=== PATIENT | male | born 1945 | race Caucasian/White ===

== ENCOUNTER 2017-03-09 15:36 | Emergency (ER) | payer MEDICARE ==
[2017-03-09 16:23] LABS: BASOPHILS 0.1 % (0-2); EOSINOPHILS 0 % (0-7); HEMATOCRIT 39.7 % (42.0-54.0); HEMOGLOBIN 13.1 g/dL (13.5-17.5); IMMATURE GRANULOCYTES 0.2 % (0-5); LYMPHOCYTES 16.7 % (15-50); MCH 31.3 pg (26.0-34.0); MCV 94.7 fL (80.0-100.0); MEAN PLATELET VOLUME 10.5 fL (7.4-10.4); MONOCYTES 8.2 % (2-11); NEUTROPHILS 74.8 % (40-80); PLATELET COUNT 271 10x3/uL (130-400); RBC 4.19 10x6/uL (4.20-6.10); RDW 14.5 % (11.5-14.5)
[2017-03-09 16:47] LABS: ALBUMIN 3.1 g/dL (3.4-5.0); ALKALINE PHOSPHATASE 115 U/L (46-116); ALT (SGPT) 28 U/L (10-68); BILIRUBIN - TOTAL 0.42 mg/dL (0.2-1.3); CALC OSMOLALITY 284 mosm/kg (275-300); CHLORIDE - SERUM 105 mmol/L (98-107); CREATININE - SERUM 0.8 mg/dL (0.6-1.3); GLUCOSE 166 mg/dL (74-106); POTASSIUM - SERUM 4.7 mmol/L (3.5-5.1); PROTEIN - SERUM 7.1 g/dL (6.4-8.2); SODIUM 139 mmol/L (136-145); UREA NITROGEN 22 mg/dL (7-18); eGFR NON AFRICAN AMERICAN > 90 mL/min (90-120)
[2017-03-09 16:53] LABS: CREATINE KINASE 84 UL (21-232); PRO BNP 305 pg/mL (0-125); TROPONIN-I < 0.017 ng/mL (0.000-0.060)
[2017-03-09 17:40] LABS: APPEARANCE CLEAR (CLEAR); BILIRUBIN NEGATIVE (NEGATIVE); COLOR YELLOW (YELLOW); GLUCOSE NEGATIVE (NEGATIVE); KETONE NEGATIVE (NEGATIVE); LEUKOCYTE ESTERASE NEGATIVE (NEGATIVE); NITRITE NEGATIVE (NEGATIVE); PROTEIN NEGATIVE (NEGATIVE); UROBILINOGEN NORMAL (NORMAL)
== END 2017-03-09 18:53 | disposition home or self-care (01) ==
LOC: D.ER 15:36
PROVIDERS: Emergency Medicine; Nurse Practitioner Acute Care
DX: R53.1 Weakness (principal); I20.9 Angina pectoris, unspecified; I10 Essential (primary) hypertension; R07.9 Chest pain, unspecified

== ENCOUNTER 2017-04-28 16:37 | Observation (INO) | payer MEDICARE, OTHER ==
[~2017-04-28] VITALS: Ht 175.3 cm; Wt 108.0 kg
[2017-04-28 17:42] LABS: APPEARANCE CLEAR (CLEAR); BILIRUBIN NEGATIVE (NEGATIVE); COLOR YELLOW (YELLOW); GLUCOSE 1000 mg/dL (NEGATIVE); KETONE NEGATIVE (NEGATIVE); LEUKOCYTE ESTERASE NEGATIVE (NEGATIVE); NITRITE NEGATIVE (NEGATIVE); PROTEIN NEGATIVE (NEGATIVE); SPECIFIC GRAVITY 1.015 (1.005-1.020); UROBILINOGEN NORMAL (NORMAL)
[2017-04-28 18:06] LABS: BASOPHILS 0.1 % (0-2); EOSINOPHILS 0.2 % (0-7); HEMATOCRIT 39.5 % (42.0-54.0); HEMOGLOBIN 13.1 g/dL (13.5-17.5); IMMATURE GRANULOCYTES 0.2 % (0-5); LYMPHOCYTES 16.3 % (15-50); MCH 32.1 pg (26.0-34.0); MCHC 33.2 g/dL (31.0-37.0); MCV 96.8 fL (80.0-100.0); MEAN PLATELET VOLUME 10.3 fL (7.4-10.4); MONOCYTES 8.6 % (2-11); NEUTROPHILS 74.6 % (40-80); RBC 4.08 10x6/uL (4.20-6.10); RDW 15.4 % (11.5-14.5); WBC 8.7 10x3/uL (4.8-10.8)
[2017-04-28 18:09] LABS: PLATELET COUNT 189 10x3/uL (130-400)
[2017-04-28 18:56] LABS: ALBUMIN 2.7 g/dL (3.4-5.0); ALKALINE PHOSPHATASE 118 U/L (46-116); ALT (SGPT) 37 U/L (10-68); BILIRUBIN - TOTAL 0.34 mg/dL (0.2-1.3); CALC OSMOLALITY 286 mosm/kg (275-300); CALCIUM 8.3 mg/dL (8.5-10.1); CARBON DIOXIDE 29.1 mmol/L (21.0-32.0); CHLORIDE - SERUM 100 mmol/L (98-107); POTASSIUM - SERUM 4.5 mmol/L (3.5-5.1); PROTEIN - SERUM 6.3 g/dL (6.4-8.2); SODIUM 138 mmol/L (136-145); UREA NITROGEN 18 mg/dL (7-18); eGFR NON AFRICAN AMERICAN 78 mL/min (90-120)
[2017-04-28 19:00] LABS: GLUCOSE 258 mg/dL (74-106)
--- NOTE | 2017-04-28 20:42 | NUR ---
REC'D TO ROOM 2214 FROM [facility] VIA A 71 Y/O W/M PER SERVICES DR. BERNSTEIN WITH DX. SYNCOPE/CELLULITIS LEFT ELBOW. SALINE LOCK PATENT RT AC. SITE CLEAR. ALLERGY=LEVAQUIN/KEFLEX. ASSESSMENT PER ADMIT PACTET. LEFT ELBOW RED SWOLLEN FROM UPPER ARM DOWN TO HAND. SCABS NOTED WITH ABRASIONS. PLACED ON TELM. SHOWS SR 74.
--- NOTE | 2017-04-28 22:00 | NUR ---
PLACED ON TELM. SHOWS SR WITH HR 74.
--- NOTE | 2017-04-28 22:43 | NUR ---
C/O PAIN IN LEGS CRAMPING TYPE PAIN. TYLENOL 650MG GIVEN FOR PAIN CONTROL.
[2017-04-28] MEDS ORDERED: ZYTIGA250 MG PO (22:52)
[2017-04-28] MEDS ORDERED: PREDNISONE5 MG PO (22:53)
[2017-04-28] MEDS ORDERED: COZAAR25 MG PO (22:54)
[2017-04-28] MEDS ORDERED: LOPRESSOR25 MG PO (22:55)
[2017-04-28] MEDS ORDERED: OMEPRAZOLE20 M1 PO (22:57)
[2017-04-28] MEDS ORDERED: TRIAMTERENE-HCT1 TA1 PO (22:58)
[2017-04-28] MEDS ORDERED: HYDROCODONE-APA1 TAB PO (23:00)
[2017-04-28] MEDS ORDERED: LIPITOR20 MG PO (23:00)
--- NOTE | 2017-04-28 23:00 | NUR ---
HERE DISCUSSED PT'S HOME MEDS. IV FLUIDS OF NS STARTED TO IV SITE RT AC AT 100CC'S/HR.
[2017-04-28] MEDS ORDERED: LOMOTIL TABLET1 TAB PO (23:02)
[2017-04-28] MEDS ORDERED: SPIRIVA18 MCG INH (23:02)
[2017-04-28] MEDS ORDERED: LUNESTA2 M1 PO (23:04)
[2017-04-28] MEDS ORDERED: FLUTICASONE PRO16 GM (23:04)
[2017-04-28] MEDS ORDERED: ZANAFLEX2 M1 PO (23:05)
[2017-04-28] MEDS ORDERED: ASPIRIN81 MG PO (23:08)
[2017-04-28] MEDS ORDERED: MELATONIN 3 MG1 TAB PO (23:09)
[2017-04-28] MEDS ORDERED: MAG-OX 400 MG400 MG PO (23:10)
[2017-04-28] MEDS ORDERED: FISH OIL 1,2001 CAP PO (23:11)
[2017-04-28] MEDS ORDERED: CAYENNE (23:16)
[2017-04-28] MEDS ORDERED: MULTIPLE VITAMI1 TA1 PO (23:16)
[2017-04-28] MEDS ORDERED: CO Q-10200 MG (23:17)
[2017-04-28] MEDS ORDERED: CALCIUM 500 + D1 TAB PO (23:19)
[2017-04-28] MEDS ORDERED: CINNAMON500 MG PO (23:19)
[2017-04-28] MEDS ORDERED: LUTEIN20 MG PO (23:20)
[2017-04-28] MEDS ORDERED: ZEAXANTHIN PO (23:23)
[2017-04-28] MEDS ORDERED: CLOTRIM ANTIFUN15 GM TOPICAL (23:24)
[2017-04-28] MEDS ORDERED: TEMAZEPAM30 MG PO (23:33)
[2017-04-29] VITALS: BP 144/93
--- NOTE | 2017-04-29 | NUR ---
IV BEEPING RESITED TO LEFT HAND #20G ANGICATH RESUMED IV FLUIDS.
--- NOTE | 2017-04-29 01:11 | NUR ---
PATIENT VERY AGITATED STATES LEGS ARE CRAMPING AND WANTS TO GET OUT OF BED ASSISTED UP OUT OF BED AND WALKED IN HALLWAY A SHORT DISTANCE. THEN BACK TO BED PT YELLING THAT LEGS ARE CRAMPING NOTIFIED ER MD DR. CLINTON ORDERS REC'D FOR NORCO GIVEN FOR PAIN CONTROL.
--- NOTE | 2017-04-29 01:30 | NUR ---
IV BEEPS BECAUSE PT IS MOVING ABOUT IN BED. REQUESTING IV BE TURNED OFF FOR NOW
[2017-04-29 01:45] VITALS: BP 116/76; BMI 35.2
--- NOTE | 2017-04-29 02:00 | NUR ---
EYES CLOSED RESPIRATIONS WITH EASE AND UNLABORED.
--- NOTE | 2017-04-29 04:00 | NUR ---
RESTING QUIETLY DENIES NEEDS.
--- NOTE | 2017-04-29 06:00 | NUR ---
MEDS GIVEN PER NOV. AWAKE ALERT FEELING MUCH BETTER.
--- NOTE | 2017-04-29 07:25 | NUR ---
ASSESSMENT PER FLOW SHEET.PT WITHOUT DISTRESS.HAS BEEN UP IN ROOM THIS AM. LEFT ARM/ ELBOW HAS SOME REDNESS WITH MILD SWELLING.SCABS ALSO NOTED TO RIGHT ELBOW AREA.CALL LIGHT IN REACH.
[2017-04-29 07:55] VITALS: BP 138/72
[2017-04-29 10:41] VITALS: Ht 175.3 cm; Wt 108.0 kg
--- NOTE | 2017-04-29 10:57 | NUR ---
ATE CLEAR LIQUID TRAY FOR BREAKFAST AND TOLERATED WELL.HAS BEEN UP AGAIN TO AMBULATE IN HALLS.DRINKING COFFEE.ANXIOUS RE... HOME MEDS.CALL TO .
[2017-04-29] MEDS ORDERED: CLEOCIN HCL150 MG PO (11:19)
--- NOTE | 2017-04-29 11:28 | NUR ---
ORDERED CLINDAMYCIN CALLED TO [facility] ON [address]. DELFINA, PHARMACIST RECEIVED ORDER.
--- NOTE | 2017-04-29 11:48 | NUR ---
IV DCD WITH CATH INTACT X2.DISCHARGE INSTRUCTIONS,STATES UNDERSTANDING. ASSIST WITH DRESSING.
[2017-04-29 12:00] VITALS: BP 144/82
--- NOTE | 2017-04-29 12:07 | NUR ---
LEFT UNNIT VIA WHEELCHAIR
--- NOTE | 2017-04-29 16:24 | HP ---
PATIENT: JORY DAVENPORT MEDICAL RECORD: [id number] ACCOUNT: [id number] LOCATION:D.MS [id number] : 43 ADMISSION DATE: 04/28/17 HISTORY AND PHYSICAL EXAMINATION Admission History and Physical HISTORY OF PRESENT ILLNESS: A 71-year-old male presented to the Emergency Room with a near syncopal episode, reports a fall at home. The patient has stage IV prostate cancer. His oncologist, heating and ventilating worker and primary care physician are in [place]. He is undergoing chemotherapy for maintained remission, stabilization. He is also followed closely by his heating and ventilating worker. He had been in [facility] for the past several days with his and had gotten dehydrated, usually drinks Pedialyte or Gatorade and had not had any significant fluids, continued his cardiac medications, became hypotensive and fell, did not lose consciousness. CURRENT MEDICATIONS: Listed as Zytigia 1 four times daily in the morning, prednisone 5 mg 1 in a.m. and 1 in p.m., losartan 25 mg daily, metoprolol 25 mg one half pill in the a.m., omeprazole 20 mg daily, triamterene half tab daily in the a.m., hydrochlorothiazide half tab daily in the a.m., hydrocodone 10/325 one to two q.4 hours p.r.n., Lipitor 20 mg once at night, Lomotil 2.5 mg two every 6-8 hours p.r.n. diarrhea, Spiriva 18 mcg daily, fluticasone 50 mcg, Lunesta 2 mg q.h.s., tizanidine 2 mg b.i.d., aspirin 81 mg daily, melatonin 3 mg at night, magnesium 400 mg 2 daily, fish oil 1200 mg q.h.s., Cayenne 400 units b.i.d., multivitamin daily, CoQ10 200 mg daily, calcium with D daily, cinnamon 1000 mg daily, lutein 25 mg daily, CPAP with sleep, terbinafine 250 mg once a day, Bactroban for recent cellulitis wrist. FAMILY HISTORY: Noncontributory. The patient is a limited historian with his chemo regimen. REVIEW OF SYSTEMS: GENERAL: No acute change in weight. HEENT: No cephalgia, visual changes, tinnitus, epistaxis or dysphagia. CARDIOVASCULAR: History of arrhythmia, believed to be paroxysmal AFib. The patient is unclear. He does see a heating and ventilating worker on a regular basis. Denies chest pain, denies palpitations. PULMONARY: Denies hemoptysis, denies night sweats. GASTROINTESTINAL: Denies hematemesis, hematochezia or melena. GENITOURINARY: Denies dysuria, denies change in frequency. History significant for stage IV prostate cancer. MUSCULOSKELETAL: No acute changes. ENDOCRINE: Denies polyuria, polydipsia, or polyphagia. PHYSICAL EXAMINATION: VITAL SIGNS: Temperature 99.1, heart rate 120, respirations 20, blood pressures improved to 116/76, O2 sats 97% on room air. GENERAL: Alert, oriented to person, answers appropriately. No acute distress. HEENT: No cephalgia, visual changes, tinnitus, epistaxis or dysphagia. CARDIOVASCULAR: Denies chest pain. History as above. PULMONARY: Denies hemoptysis, denies night sweats. GASTROINTESTINAL: Denies hematemesis, hematochezia or melena. GENITOURINARY: Denies dysuria. History of stage IV prostate cancer, on chemo. MUSCULOSKELETAL: No acute changes. HISTORY AND PHYSICAL [id number] JORY DAVENPORT ENDOCRINE: Denies polyuria, polydipsia, or polyphagia. PHYSICAL EXAMINATION: VITAL SIGNS: Temperature 99.1, heart rate 120, respirations 20, blood pressure 116/76, O2 sats 97%. GENERAL: Alert and oriented. HEENT: Normocephalic, atraumatic. Eyes: Pupils are equally round and reactive to light and accommodation. Extraocular muscles intact. Conjunctivae were not injected. Ears: Canals patent, TMs are intact. Nose: Nares patent without drainage. Throat: No erythema, no exudates. NECK: Supple. No lymphadenopathy, no JVD. HEART: Regular, tachycardic. LUNGS: Clear to auscultation bilaterally. Breathing is nonlabored. ABDOMEN: Soft, nontender. Bowel sounds all 4 quadrants. EXTREMITIES: Present times 4. No significant edema. NEUROLOGIC: No focal deficits. SKIN: Warm and dry, excoriated rash left forearm. Has appearance of chronic eczema with may be possible secondary inflammation versus infection. No weeping, no drainage, no swelling. LABORATORY DATA: CBC: White count 8.7, hemoglobin 13.1, hematocrit 39.5, platelets 189. Chemistry shows a sodium of 138, potassium 4.5, chloride 100, bicarbonate 29.1, BUN 18, creatinine 1.0, glucose 258. AST 24, ALT 37, alkaline phosphatase 118. Urinalysis: Yellow, clear, normal UA except for glucose is 1000. Acute abdominal series, nonobstructive bowel gas pattern. Lungs are clear, borderline cardiomegaly, moderate stool. ASSESSMENT AND PLAN: 1. Reported near syncopal episode with fall. No evidence of trauma, hypotension. Telemetry shows AFib, ranging from 72-106. This is likely chronic, with his history and per discussion. We will resume home medications. 2. Stage IV prostate cancer. Continue medications. 3. Elevated glucose and diabetic diet, monitor. Discussed care plan with the patient. He does not want cardiac intervention here. He is already established with the heating and ventilating worker and oncologist and primary care in [place]. He is feeling much better with IV fluids. We will monitor this morning and this afternoon with discharge plans anticipated for late this afternoon or tomorrow. The patient appreciates and agrees with this plan. We will see how he does with conversion to oral hydration. TRANSINT:[id number] Voice Confirmation ID: [id number] DOCUMENT ID: [id number] BERNARD BERNSTEIN DO at 1624 CC: [id number] DICTATION DATE: 04/29/17756 [facility] ALTERATION: 04/29/17 0857 DIS IN 04/29/17 [facility] [address] [id number]
== END 2017-04-29 12:08 | disposition home or self-care (01) ==
LOC: D.ER 16:37 → D.MS 19:42 → OBSVTIME 19:42 → D.MS 04-29 12:08
PROVIDERS: Emergency Medicine; ADMIT Family Medicine
DX: I95.9 Hypotension, unspecified (principal); R55 Syncope and collapse; W19.XXXA Unspecified fall, initial encounter; I48.91 Unspecified atrial fibrillation; L03.114 Cellulitis of left upper limb; C61 Malignant neoplasm of prostate

== ENCOUNTER 2019-01-09 05:22 | Emergency (ER) | payer MEDICARE, OTHER ==
[~2019-01-09 05:22] MED LIST: ASPIRIN81 MG PO; CALCIUM 500 + D1 TAB PO; CAYENNE; CINNAMON500 MG PO; CLEOCIN HCL150 MG PO; CLOTRIM ANTIFUN15 GM TOPICAL; CO Q-10200 MG; COZAAR25 MG PO; FISH OIL 1,2001 CAP PO; FLUTICASONE PRO16 GM; HYDROCODONE-APA1 TAB PO; LIPITOR20 MG PO; LOMOTIL TABLET1 TAB PO; LOPRESSOR25 MG PO; LUNESTA2 M1 PO; LUTEIN20 MG PO; MAG-OX 400 MG400 MG PO; MELATONIN 3 MG1 TAB PO; MULTIPLE VITAMI1 TA1 PO; OMEPRAZOLE20 M1 PO; PREDNISONE5 MG PO; SPIRIVA18 MCG INH; TEMAZEPAM30 MG PO; TRIAMTERENE-HCT1 TA1 PO; ZANAFLEX2 M1 PO; ZEAXANTHIN PO; ZYTIGA250 MG PO
[2019-01-09 05:51] LABS: BASOPHILS 0.4 % (0-2); EOSINOPHILS 2.2 % (0-7); HEMATOCRIT 37.3 % (42.0-54.0); HEMOGLOBIN 12.2 g/dL (13.5-17.5); IMMATURE GRANULOCYTES 0.3 % (0-5); LYMPHOCYTES 27.7 % (15-50); MCH 31.1 pg (26.0-34.0); MCHC 32.7 g/dL (31.0-37.0); MCV 95.2 fL (80.0-100.0); MEAN PLATELET VOLUME 10.3 fL (7.4-10.4); MONOCYTES 9.8 % (2-11); NEUTROPHILS 59.6 % (40-80); PLATELET COUNT 217 10x3/uL (130-400); RBC 3.92 10x6/uL (4.20-6.10); RDW 14.8 % (11.5-14.5); WBC 7.8 10x3/uL (4.8-10.8)
[2019-01-09 06:02] LABS: ALBUMIN 2.9 g/dL (3.4-5.0); ALKALINE PHOSPHATASE 73 U/L (46-116); ALT (SGPT) 22 U/L (10-68); BILIRUBIN - TOTAL 0.32 mg/dL (0.2-1.3); CALC OSMOLALITY 285 mosm/kg (275-300); CALCIUM 8.4 mg/dL (8.5-10.1); CARBON DIOXIDE 28.6 mmol/L (21.0-32.0); CHLORIDE - SERUM 106 mmol/L (98-107); CREATININE - SERUM 0.9 mg/dL (0.6-1.3); POTASSIUM - SERUM 3.7 mmol/L (3.5-5.1); PROTEIN - SERUM 6.5 g/dL (6.4-8.2); SODIUM 141 mmol/L (136-145); UREA NITROGEN 20 mg/dL (7-18); eGFR NON AFRICAN AMERICAN 87 mL/min (90-120)
[2019-01-09 06:04] LABS: GLUCOSE 136 mg/dL (74-106)
[2019-01-09 06:13] LABS: CKMB 1.1 U/L (0.0-3.6); CREATINE KINASE 91 UL (21-232)
[2019-01-09 06:14] LABS: TROPONIN-I < 0.017 ng/mL (0.000-0.060)
[2019-01-09 07:37] LABS: APTT 26.4 SECONDS (22.8-39.4); INR 1.07 (0.85-1.17); PROTIME 13.4 SECONDS (11.6-15.0)
[2019-01-09 08:41] LABS: CREATINE KINASE 80 UL (21-232)
[2019-01-09 08:42] LABS: TROPONIN-I < 0.017 ng/mL (0.000-0.060)
== END 2019-01-09 09:53 | disposition home or self-care (01) ==
LOC: D.ER 05:22
PROVIDERS: Emergency Medicine; Family Medicine
DX: R07.9 Chest pain, unspecified (principal); K21.9 Gastro-esophageal reflux disease without esophagitis

== ENCOUNTER 2019-01-25 13:35 | Emergency (ER) | payer MEDICARE, OTHER ==
[~2019-01-25] VITALS: Ht 175.3 cm; Wt 113.6 kg
[2019-01-25 13:38] VITALS: Ht 175.3 cm; Wt 113.6 kg
[2019-01-25 14:09] LABS: BASOPHILS 0.5 % (0-2); EOSINOPHILS 1.7 % (0-7); HEMATOCRIT 40.9 % (42.0-54.0); HEMOGLOBIN 13.6 g/dL (13.5-17.5); IMMATURE GRANULOCYTES 0.2 % (0-5); MCH 31.9 pg (26.0-34.0); MCHC 33.3 g/dL (31.0-37.0); MCV 95.8 fL (80.0-100.0); MEAN PLATELET VOLUME 10.7 fL (7.4-10.4); MONOCYTES 10.3 % (2-11); NEUTROPHILS 61.3 % (40-80); PLATELET COUNT 213 10x3/uL (130-400); RBC 4.27 10x6/uL (4.20-6.10); RDW 14.4 % (11.5-14.5); WBC 8.1 10x3/uL (4.8-10.8)
[2019-01-25 14:31] LABS: ALBUMIN 3.4 g/dL (3.4-5.0); ALKALINE PHOSPHATASE 79 U/L (46-116); ALT (SGPT) 22 U/L (10-68); BILIRUBIN - TOTAL 0.58 mg/dL (0.2-1.3); CALC OSMOLALITY 279 mosm/kg (275-300); CALCIUM 9.3 mg/dL (8.5-10.1); CARBON DIOXIDE 26.2 mmol/L (21.0-32.0); CHLORIDE - SERUM 102 mmol/L (98-107); CREATININE - SERUM 0.9 mg/dL (0.6-1.3); GLUCOSE 103 mg/dL (74-106); PROTEIN - SERUM 7.3 g/dL (6.4-8.2); SODIUM 139 mmol/L (136-145); UREA NITROGEN 17 mg/dL (7-18); eGFR NON AFRICAN AMERICAN 87 mL/min (90-120)
[2019-01-25 14:33] LABS: APTT 24.3 SECONDS (22.8-39.4); INR 1.05 (0.85-1.17); PROTIME 13.2 SECONDS (11.6-15.0)
[2019-01-25 14:36] LABS: CKMB 1.2 U/L (0.0-3.6); CREATINE KINASE 90 UL (21-232)
[2019-01-25 14:40] LABS: TROPONIN-I < 0.017 ng/mL (0.000-0.060)
[2019-01-25 16:51] LABS: APPEARANCE CLEAR (CLEAR); BILIRUBIN NEGATIVE (NEGATIVE); COLOR YELLOW (YELLOW); GLUCOSE NEGATIVE (NEGATIVE); KETONE NEGATIVE (NEGATIVE); NITRITE POSITIVE (NEGATIVE); PROTEIN NEGATIVE (NEGATIVE); SPECIFIC GRAVITY 1.015 (1.005-1.020); UROBILINOGEN NORMAL (NORMAL)
[2019-01-25 16:52] LABS: BACTERIA MANY /hpf (NONE SEEN); RED CELLS - URINE OCC /hpf (0-5); WHITE CELLS - URINE 0-5 /hpf (0-5)
[2019-01-25] MEDS ORDERED: MACROBID100 MG PO ×2 (17:16→17:23)
[2019-01-25 17:30] VITALS: BP 134/86
== END 2019-01-25 18:03 | disposition home or self-care (01) ==
LOC: D.ER 13:35
PROVIDERS: Family Medicine
DX: N39.0 Urinary tract infection, site not specified (principal); R53.1 Weakness

== ENCOUNTER 2019-07-22 02:24 | Outpatient (CLI) | payer MEDICARE, OTHER ==
[~2019-07-22] VITALS: Ht 175.3 cm; Wt 113.6 kg
[~2019-07-22 02:24] MED LIST changes: +MACROBID100 MG PO
[2019-07-22 02:47] LABS: BASOPHILS 0.1 % (0-2); EOSINOPHILS 3.3 % (0-7); HEMATOCRIT 38.7 % (42.0-54.0); HEMOGLOBIN 12.4 g/dL (13.5-17.5); LYMPHOCYTES 32.2 % (15-50); MCH 31.3 pg (26.0-34.0); MCV 97.7 fL (80.0-100.0); MEAN PLATELET VOLUME 10.3 fL (7.4-10.4); MONOCYTES 9.3 % (2-11); NEUTROPHILS 55.1 % (40-80); PLATELET COUNT 215 10x3/uL (130-400); RBC 3.96 10x6/uL (4.20-6.10); RDW 14.1 % (11.5-14.5); WBC 7.4 10x3/uL (4.8-10.8)
[2019-07-22 02:56] LABS: CALC OSMOLALITY 277 mosm/kg (275-300); CALCIUM 8.5 mg/dL (8.5-10.1); CHLORIDE - SERUM 104 mmol/L (98-107); CREATININE - SERUM 0.9 mg/dL (0.6-1.3); GLUCOSE 134 mg/dL (74-106); SODIUM 138 mmol/L (136-145); UREA NITROGEN 13 mg/dL (7-18); eGFR NON AFRICAN AMERICAN 87 mL/min (90-120)
--- NOTE | 2019-07-22 03:22 | NUR ---
PT GIVEN BLANKETS AND HEAD OF BED ADJUSTED TO LEVEL OF COMFORT, DENIES ANY FURTHER NEEDS AT THIS TIME. WILL CONTINUE TO MONITOR.
[2019-07-22 03:25] LABS: ALBUMIN 3.2 g/dL (3.4-5.0); ALKALINE PHOSPHATASE 80 U/L (46-116); ALT (SGPT) 20 U/L (10-68); BILIRUBIN - TOTAL 0.48 mg/dL (0.2-1.3); CKMB 0.5 U/L (0.0-3.6); CREATINE KINASE 92 UL (21-232); MAGNESIUM - SERUM 2.1 mg/dL (1.8-2.4); PROTEIN - SERUM 7.1 g/dL (6.4-8.2); TROPONIN-I < 0.017 ng/mL (0.000-0.060)
[2019-07-22 04:40] VITALS: BP 119/73
[2019-07-22] MEDS ORDERED: ZYTIGA250 MG PO (05:42)
[2019-07-22] MEDS ORDERED: REMERON15 MG PO (05:52)
[2019-07-22] MEDS ORDERED: GLUCOTROL ER2.5 MG PO (05:53)
[2019-07-22] MEDS ORDERED: MULTAQ400 MG PO (05:55)
[2019-07-22 05:56] VITALS: BP 124/66; BMI 37.0
--- NOTE | 2019-07-22 07:15 | NUR ---
RECEIVED PT IN BED EYES CLOSED RESP UNLABORED SKIN W/D NAD NOTED AT THIS TIME
[2019-07-22 09:05] VITALS: BP 123/82
[2019-07-22 10:30] VITALS: Ht 175.3 cm; Wt 113.6 kg
--- NOTE | 2019-07-22 12:52 | NUR ---
PT STATES HE WILL TAKE ON HOME MEDS WHEN HE GETS HOME DISCHARGE IS ORDERED
--- NOTE | 2019-07-22 15:15 | NUR ---
REVIEWED DISCHARGE INSTRUCTIONS WITH PT STATES UNDERSTANDING COPY GIVEN DCD SALINE LOCK TO RFA WITH IV CATHETER INTACT SITE FREE OF REDNESS OR EDEMA PT DISCHARGED IN STABLE CONDITION WITH ALL PERSONAL BELONGINGS LEFT UNIT VIA W/C
== END 2019-07-22 05:15 | disposition home or self-care (01) ==
LOC: OBSVTIME → D.ER 02:24 → D.OPS 02:24 → OBSVTIME 04:16 → D.M2 04:16 → D.ER 04:16 → D.M2 04:16 → D.OPS 05:15 → D.ER 05:18 → EDSTATUS 10:58 → D.M2 15:15
PROVIDERS: Emergency Medicine; ATTEND Internal Medicine Nephrology
DX: R20.2 Paresthesia of skin (principal); D64.9 Anemia, unspecified; I10 Essential (primary) hypertension; E78.5 Hyperlipidemia, unspecified; E11.9 Type 2 diabetes mellitus without complications; K21.9 Gastro-esophageal reflux disease without esophagitis; C61 Malignant neoplasm of prostate; R42 Dizziness and giddiness

== ENCOUNTER 2019-09-11 02:54 | Emergency (ER) | payer MEDICARE, OTHER ==
[~2019-09-11] VITALS: Ht 175.3 cm; Wt 113.6 kg
[~2019-09-11 02:54] MED LIST changes: +GLUCOTROL ER2.5 MG PO; +MULTAQ400 MG PO; +REMERON15 MG PO
[2019-09-11 02:59] VITALS: Ht 175.3 cm; Wt 113.6 kg
[2019-09-11] MEDS ORDERED: REMERON15 MG PO (03:03)
[2019-09-11] MEDS ORDERED: ELIGARD (03:05)
[2019-09-11 03:42] LABS: BASOPHILS 0.5 % (0-2); EOSINOPHILS 3.3 % (0-7); HEMATOCRIT 38.4 % (42.0-54.0); HEMOGLOBIN 12.3 g/dL (13.5-17.5); IMMATURE GRANULOCYTES 0.2 % (0-5); LYMPHOCYTES 25.9 % (15-50); MCH 30.9 pg (26.0-34.0); MCV 96.5 fL (80.0-100.0); MONOCYTES 10.6 % (2-11); NEUTROPHILS 59.5 % (40-80); PLATELET COUNT 235 10x3/uL (130-400); RBC 3.98 10x6/uL (4.20-6.10); WBC 8.9 10x3/uL (4.8-10.8)
[2019-09-11 03:49] LABS: CALC OSMOLALITY 276 mosm/kg (275-300); CALCIUM 8.6 mg/dL (8.5-10.1); CHLORIDE - SERUM 104 mmol/L (98-107); GLUCOSE 174 mg/dL (74-106); POTASSIUM - SERUM 3.5 mmol/L (3.5-5.1); SODIUM 136 mmol/L (136-145); UREA NITROGEN 14 mg/dL (7-18); eGFR NON AFRICAN AMERICAN 77 mL/min (90-120)
[2019-09-11 04:09] LABS: ALBUMIN 2.9 g/dL (3.4-5.0); ALKALINE PHOSPHATASE 74 U/L (46-116); ALT (SGPT) 18 U/L (10-68); BILIRUBIN - TOTAL 0.42 mg/dL (0.2-1.3); MAGNESIUM - SERUM 1.9 mg/dL (1.8-2.4); PROTEIN - SERUM 6.6 g/dL (6.4-8.2)
[2019-09-11 06:32] VITALS: BP 123/70
== END 2019-09-11 06:30 | disposition home or self-care (01) ==
LOC: D.ER 02:54
PROVIDERS: Emergency Medicine
DX: T40.601A Poisoning by unspecified narcotics, accidental (unintentional), initial encounter (principal); Y92.9 Unspecified place or not applicable; E11.9 Type 2 diabetes mellitus without complications; I10 Essential (primary) hypertension; E78.5 Hyperlipidemia, unspecified; Z79.84 Long term (current) use of oral hypoglycemic drugs

== ENCOUNTER 2019-10-11 14:16 | Observation (INO) | payer MEDICARE, OTHER ==
[~2019-10-11] VITALS: Ht 175.3 cm; Wt 114.4 kg
[~2019-10-11 14:16] MED LIST changes: -CO Q-10200 MG; +CO Q-10200 MG PO; +ELIGARD
[2019-10-11 14:45] LABS: BASOPHILS 0.2 % (0-2); EOSINOPHILS 0.9 % (0-7); HEMATOCRIT 37.5 % (42.0-54.0); HEMOGLOBIN 12.1 g/dL (13.5-17.5); IMMATURE GRANULOCYTES 0.3 % (0-5); LYMPHOCYTES 15.1 % (15-50); MCH 31.2 pg (26.0-34.0); MCHC 32.3 g/dL (31.0-37.0); MCV 96.6 fL (80.0-100.0); MEAN PLATELET VOLUME 10.1 fL (7.4-10.4); MONOCYTES 7.8 % (2-11); NEUTROPHILS 75.7 % (40-80); PLATELET COUNT 245 10x3/uL (130-400); RBC 3.88 10x6/uL (4.20-6.10); RDW 14.2 % (11.5-14.5); WBC 9.9 10x3/uL (4.8-10.8)
[2019-10-11 15:04] LABS: APTT 26.1 SECONDS (22.8-39.4); CALC OSMOLALITY 286 mosm/kg (275-300); CALCIUM 8.3 mg/dL (8.5-10.1); CARBON DIOXIDE 27.7 mmol/L (21.0-32.0); CHLORIDE - SERUM 106 mmol/L (98-107); CREATININE - SERUM 0.8 mg/dL (0.6-1.3); GLUCOSE 140 mg/dL (74-106); INR 0.98 (0.85-1.17); POTASSIUM - SERUM 3.8 mmol/L (3.5-5.1); PROTIME 12.9 SECONDS (11.6-15.0); SODIUM 142 mmol/L (136-145); UREA NITROGEN 19 mg/dL (7-18); eGFR NON AFRICAN AMERICAN > 90 mL/min (90-120)
[2019-10-11 15:19] LABS: ALBUMIN 2.9 g/dL (3.4-5.0); ALKALINE PHOSPHATASE 124 U/L (46-116); ALT (SGPT) 17 U/L (10-68); BILIRUBIN - TOTAL 0.39 mg/dL (0.2-1.3); CKMB 0.8 U/L (0.0-3.6); CREATINE KINASE 49 UL (21-232); MAGNESIUM - SERUM 1.9 mg/dL (1.8-2.4); PROTEIN - SERUM 6.6 g/dL (6.4-8.2); TROPONIN-I < 0.017 ng/mL (0.000-0.060)
--- NOTE | 2019-10-11 15:30 | NUR ---
TP REQUESTED TO SIT UP ON SIDE OF BED. AT BEDSIDE. NO DISTRESS NOTED.
--- NOTE | 2019-10-11 16:10 | NUR ---
URINE SAMPLE SENT TO LAB
--- NOTE | 2019-10-11 16:47 | NUR ---
REPORT GIVEN TO LEDY ESCALANTE ON MED II. ROOM IS DIRTY
[2019-10-11 17:52] LABS: CKMB 0.4 U/L (0.0-3.6); CREATINE KINASE 47 UL (21-232)
[2019-10-11 17:55] LABS: TROPONIN-I < 0.017 ng/mL (0.000-0.060)
[2019-10-11 18:03] VITALS: BP 146/63
--- NOTE | 2019-10-11 18:23 | NUR ---
TRANSFER FROM ER BY STRETCHER. OREINTED TO ROOM. CALL LIGHT IN REACH. WILL CONT. PLAN OF CARE.
--- NOTE | 2019-10-11 19:30 | NUR ---
PATIENT WANTED TO GO OVER PATIENTS MEDICATIONS AGAIN BECAUSE SHE WAS NOT IN THE ROOM WHEN HIS MEDICATIONS WERE BE DISCUSSED. MRS. DAVENPORT WAS ADAMANT THAT HER HUSBANDS MEDICATION HAD TO BE ORDERED EXACTLY SHE STATED THEM. I WENT OVER THE PATIENT MEDICATIONS AND THEY WERE ENTERED TO HER SATISFACTION. SPOKE WITH VANDA GOMEZ REGARDING MED REC AND PAIN MEDICATION. PATIENT TAKES NORCO 10/325 ONE TO TWO TABLETS PRN FOR PAIN. ORDERS GIVEN NORCO 10/325 Q 6HR FOR PAIN.
[2019-10-11] MEDS ORDERED: ZYTIGA250 MG PO (19:46)
[2019-10-11 20:27] VITALS: BP 138/72
[2019-10-11] MEDS ORDERED: HYDROCODON-ACE1 EA10 PO (20:49)
--- NOTE | 2019-10-11 21:00 | NUR ---
MRS DAVENPORT CAME TO DESK WANTING HER TO HAVE HIS NIGHT TIME MEDICATIONS. EXPLAINED TO MRS. DAVENPORT THAT VANDA GOMEZ WAS AWARE THAT THE MEDICATIONS NEEDED TO BE ORDERED. PATIENT INSISTED THAT I PAGE VANDA GOMEZ AGAIN. VANDA GOMEZ PAGED AGAIN REGARDING MED REC. ADVUSED BY VANDA GOMEZ THAT HE IS WORKING ON IT. MRS DAVENPORT STATED SHE WAS NOT LEAVING UNTIL HER WAS GIVEN HIS GLIPIZIDE.
--- NOTE | 2019-10-11 21:20 | NUR ---
MRS. DAVENPORT LEFT FOR HOME. AGAIN ASKED ABOUT PATIENT MEDICATIONS. ASSURED MRS. DAVENPORT THAT IF MEDICATIONS WERE NOT REORDERED SHORTLY THAT I WOULD REMIND THE POLE LIFT OPERATOR. MRS. DAVENPORT WAS SATISFIED.
--- NOTE | 2019-10-11 21:48 | NUR ---
MEDICATIONS REORDERED. WENT TO PATIENT ROOM TO ADMINISTER MEDICATIONS. PATIENT BECAME UPSET BECAUSE HIS GLIPIZIDE WAS NOT REORDERED. PATIENT CALLED HIS TOLD HER THE SITUATION. PATIENT HANDED ME HIS CELL PHONE. MRS. DAVENPORT WAS EXTRMEMLY UPSET. EXPLAINED TO HER THAT IT WAS NORMAL THAT IF A PATIENT CAME INTO THE HOSPITAL TAKING ORAL MEDICATIONS FOR DIABETES IT WAS NOT UNSUAL FOR PHYSICIANS TO ORDER INSULIN. WHICH WAS DONE IN THIS CASE. EXPLAINED THAT THIS WAS MOSTLY LIKELY DONE IN ANTICIPATION FOR ANY PROCEDURES THAT MAY REQUIRE CONTRAST. MRS. DAVENPORT STATED, " DR. LAZO AND VANDA GOMEZ WERE NOT FORTH RIGHT WITH HER AND HER ." SHE STATED, THAT UNLESS IT WAS PROVEN TO HER THAT UT WAS A LIFE OR SITUATION SHE WANTED NOT PROCEDURES TO BEEN DONE HER, BECAUSE HER IS FOLLOWED BY SPECIALIST IN [place] AT THE [facility]. WHILE I WAS STILL ON THE PHONE WITH PATIENT , PATIENT STATED "I REMEMBER I TAKE ANOTHER MEDICATION, PREDNISONE 5 MG. EXPAINED TO THE PATIENT THAT THAT MEDICATION WAS ON HIS MED REC BUT THAT IT WAS PLACED ON HOLD. PATIENT SLAMMED FIST ON TO BED. STATED THAT IF HE WAS GOING TO HE COULD DO IT AT HOME. MRS. DAVENPORT STILL ON CELL PHONE WAS UPSET STATING THAT THAT MEDICATION WAS PART OF HIS CHEMO TREATMENT AND THAT HIS MEDICATIONS NEEDED TO BE GIVEN SHE TOLD ME EARLIER IN THE SHIFT. I EXPLAINED TO BOTH THE PATIENT HIS THAT I CAN ONLY GIVE MEDICATIONS THEY ARE ORDERED. I HANDED THE CELL PHONE TO HER . EXPLAINED TO THE PATIENT THAT I WAS GOING TO BE PAGING VANDA GOMEZ. VANDA GOMEZ PAGED AND AGREED TO COME OVER AND SPEAK TO THE PATIENT.
--- NOTE | 2019-10-11 22:20 | NUR ---
PRIOR TO VANDA GOMEZ ARRIVING TO FLOOR. PATIENT CAME TO DESK AND AGREED TO TAKE THE MEDICATION THAT WAS ORDERED. MEDICATION GIVEN CHARTED ON THE EMAR. PATIENT ALSO AGREED TO TKE THE INSULIN. VANDA GOMEZ CAME TO FLOOR AND SPOKE WITH THE PATIENT. PATIENT SEEMS SATIFIED AT THIS TIME.
[2019-10-12 00:56] VITALS: BP 128/62
[2019-10-12 01:36] VITALS: BP 138/72; Ht 175.3 cm; Wt 114.4 kg
[2019-10-12 03:03] LABS: BASOPHILS 0.2 % (0-2); EOSINOPHILS 1.1 % (0-7); HEMATOCRIT 37.6 % (42.0-54.0); HEMOGLOBIN 12.1 g/dL (13.5-17.5); IMMATURE GRANULOCYTES 0.2 % (0-5); LYMPHOCYTES 19.2 % (15-50); MCH 31.2 pg (26.0-34.0); MCHC 32.2 g/dL (31.0-37.0); MCV 96.9 fL (80.0-100.0); MEAN PLATELET VOLUME 10.1 fL (7.4-10.4); MONOCYTES 7.9 % (2-11); NEUTROPHILS 71.4 % (40-80); PLATELET COUNT 274 10x3/uL (130-400); RBC 3.88 10x6/uL (4.20-6.10); RDW 14.2 % (11.5-14.5); WBC 10.1 10x3/uL (4.8-10.8)
[2019-10-12 03:19] LABS: ALBUMIN 2.9 g/dL (3.4-5.0); ALKALINE PHOSPHATASE 124 U/L (46-116); ALT (SGPT) 18 U/L (10-68); BILIRUBIN - TOTAL 0.45 mg/dL (0.2-1.3); CALCIUM 8.2 mg/dL (8.5-10.1); CARBON DIOXIDE 29.1 mmol/L (21.0-32.0); CHLORIDE - SERUM 107 mmol/L (98-107); CKMB 0.4 U/L (0.0-3.6); CREATINE KINASE 50 UL (21-232); CREATININE - SERUM 0.9 mg/dL (0.6-1.3); GLUCOSE 125 mg/dL (74-106); MAGNESIUM - SERUM 2.1 mg/dL (1.8-2.4); POTASSIUM - SERUM 4.2 mmol/L (3.5-5.1); PRO BNP 245 pg/mL (0-450); PROTEIN - SERUM 6.7 g/dL (6.4-8.2); SODIUM 144 mmol/L (136-145); eGFR NON AFRICAN AMERICAN 87 mL/min (90-120)
[2019-10-12 03:27] LABS: CALC OSMOLALITY 288 mosm/kg (275-300); TROPONIN-I < 0.017 ng/mL (0.000-0.060); UREA NITROGEN 14 mg/dL (7-18)
[2019-10-12 05:19] VITALS: BP 128/79
[2019-10-12 09:09] LABS: CKMB 0.6 U/L (0.0-3.6); CREATINE KINASE 63 UL (21-232)
[2019-10-12 09:13] LABS: TROPONIN-I < 0.017 ng/mL (0.000-0.060)
[2019-10-12 10:38] VITALS: BP 130/70
--- NOTE | 2019-10-12 15:21 | NUR ---
IV AND TELEMETRY DCD. DC PLANS GIVEN. UNDERSTANDING VOICED. ESCORTED TO CAR BY W/C.
--- NOTE | 2019-10-13 08:16 | MORECARE ---
CASE MANAGEMENT DISCHARGE SUMMARY PATIENT: JORY DAVENPORT UNIT: [id number] ADM DATE: 10/11/19 AGE: 74 : 43 SEX: M ROOM/BED: D.2119 AUTHOR: BRITTANY THOMAS PHYSICIAN: REFERRING PHYSICIAN: JAIME LAZO MD DATE OF SERVICE: 10/13/19 Discharge Plan Patient Name: JORY DAVENPORT [facility] [facility] 1945 Planned Disposition: Home Anticipated Discharge Date: 10/12/19 Discharge Date: 10/12/2019 Expected LOS: 1 Initial Reviewer: [email or web address] Initial Review Date: 10/13/2019 Generated: 10/13/19 9:16 am Coverage Notice Reviewer: [email or web address] Alma Jeter Notice Issued Date-Time: 10/12/2019 11:35 Notice Type: Medicare Outpatient Observation Notice Notice Delivered To: Patient Relationship to Patient: Sandstone Inspector Repairer Name: Delivery Method: HAND - Hand Delivered Karine Days: Prior Verbal Notification: Recipient Understood Notice: Yes Recipient Signature: Yes Med Rec Note Co-signed by Attending: Coverage Notice Comment: Patient Name: JORY DAVENPORT Page [phone] at 0816 All edits/amendments must be made on the electronic document DICTATION DATE: 10/13/19814 PIPELINE OPERATOR: MIRIAM 10/13/19814 RPT#: [id number] DC DATE:10/12/19 STATUS: DIS IN [facility] [address] [place] [address] END OF REPORT
--- NOTE | 2019-10-13 13:25 | CN ---
PATIENT NAME:JORY DAVENPORT MEDICAL RECORD: [id number] : 41 LOCATION:. D.2119 ADMIT DATE: 10/11/19 ACCOUNT: [id number] CONSULTING PHYSICIAN: JACQUELYN BLAKELY MD REFERRING PHYSICIAN: JAIME LAZO MD DATE OF CONSULTATION: 10/12/2019 HISTORY OF PRESENT ILLNESS: A 74-year-old gentleman with no known history of coronary artery disease, has a history of atrial fibrillation followed by Dr. Donaldson, scheduled actually for nuclear stress testing tomorrow and presented with chest pain. This is a somewhat atypical point tenderness. We were asked to see him concerning his cardiovascular status. PAST MEDICAL HISTORY: Significant for, 1. History of hypertension. 2. Hyperlipidemia. 3. Diabetes mellitus. 4. Atrial fibrillation described above. 5. Gastroesophageal reflux disease. MEDICATIONS: Typically include Zytiga gram p.o. daily, losartan 25 mg p.o. every day, metoprolol 12.5 mg p.o. at bedtime, atorvastatin 20 every day, Multaq 400 every day, Remeron 15 at bedtime, aspirin 81 every day, Palo 10/325 one p.o. every 4 hours p.r.n., glipizide 2.5 mg at bedtime, prednisone 5 b.i.d. SOCIAL HISTORY: Nonsmoker, nondrinker. He takes care of his ADLs. REVIEW OF SYSTEMS: The patient reports easy bruising but reports no swollen glands. The patient reports no fever, no night sweats, no significant weight gain, no significant weight loss. No significant exercise tolerance. The patient reports no dry eyes, no irritation, no vision change. Patient reports no difficulty hearing and no ear pain. Patient reports no frequent nose bleeds or nose and sinus problems. Patient reports on arm pain on exertion. No shortness of breath while lying down. No history of heart murmur. Patient reports no cough, no wheezing or coughing up blood. Patient reports no abdominal pain, no vomiting. Normal appetite. No diarrhea and not vomiting blood. No nausea and no constipation. Patient reports no incontinence. No difficulty urinating. No hematuria. No increased frequency. Patient reports no muscle aches. No weakness, no arthralgias, no back pain. No swelling of the extremities. Patient reports no abnormal mole, no jaundice, no rashes. Reports no loss of consciousness. No weakness and no numbness. No seizures, dizziness, or headaches. The patient reports no depression, no sleep disturbance, feeling safe in a relationship and no alcohol abuse. Patient reports on fatigue. Reports no runny nose or sinus pressure. No itching, no hives, and no frequent sneezing. PHYSICAL EXAMINATION: GENERAL: Pleasant, in no acute distress, appears at stated age. VITAL SIGNS: 130/70, pulse 59 and regular. HEENT: Normocephalic and atraumatic. NECK: No JVD or bruit. HEART: Regular. LUNGS: Good air excursion. ABDOMEN: Soft and nontender. Pulses 2+ with no edema. CONSULT REPORT [id number] JORY DAVENPORT EKG without acute change. No evidence of atrial fibrillation. IMPRESSION: Some atypical chest pain. Cardiac enzymes are negative at this point. No evidence of atrial fibrillation. No contraindication to discharge my standpoint, will follow up with Dr. Donaldson and a nuclear stress testing. TRANSINT:[id number] Voice Confirmation ID: [id number] DOCUMENT ID: [id number] JACQUELYN BLAKELY MD at 1325 CC: [id number] DICTATION DATE: 10/12/19 1225 HOME MAKER: 10/12/19 1816 DIS IN 10/12/19 [id number] [place] [address]
== END 2019-10-12 15:22 | disposition home or self-care (01) ==
LOC: D.ER 14:16 → D.M2 16:18 → OBSVTIME 16:53 → D.M2 10-12 15:22
PROVIDERS: Family Medicine; ADMIT Internal Medicine Nephrology; ATTEND Internal Medicine Nephrology
DX: I20.9 Angina pectoris, unspecified (principal); I10 Essential (primary) hypertension; K21.9 Gastro-esophageal reflux disease without esophagitis; E11.9 Type 2 diabetes mellitus without complications; D64.9 Anemia, unspecified; E78.5 Hyperlipidemia, unspecified; Z85.46 Personal history of malignant neoplasm of prostate